=== PATIENT | female | born 1990 | race Caucasian/White ===

== ENCOUNTER 2017-04-03 14:19 | Emergency (ER) | payer BC ==
[2017-04-03 14:36] VITALS: BP 114/53
--- NOTE | 2017-04-03 15:27 | RAD ---
Indication: RIGHT fifth toe pain following jamming injury. Comparison: No relevant prior exams available on the [facility] PACS for comparison. Technique: 3 views RIGHT fifth toe. 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 Negative for fracture or articular malalignment. Mild nonfocal soft tissue swelling.
--- NOTE | 2017-04-03 16:56 | UC ---
Lower Extremity/Ankle HPI - HPI Summary HPI Summary: 26 yo NA female p/w right 5th toe pain after it she slipped and toe got stuck underneath a shelf and now hurts to bear weight. - History of Current Complaint Chief Complaint: UCLowerExtremity Stated Complaint: RIGHT PINKY TOE INJURY Time Seen by Provider: 04/03/17 15:20 Hx Obtained From: Patient Hx Last Menstrual Period: one week ago ?: No Pain Intensity: 1 Pain Scale Used: 0-10 Numeric Aggravating Factor(s): Standing - Allergies/Home Medications Allergies/Adverse Reactions: Allergies Allergy/AdvReac Type Severity Reaction Status Date / Time No Known Allergies Allergy Verified 04/03/17 14:36 Home Medications: Home Medications Albuterol HFA INHALER* [Ventolin HFA Inhaler*] 2 puff INH Q4HR PRN 04/03/17 [ History Confirmed 04/03/17] PMH/Surg Hx/FS Hx/Imm Hx - Surgical History Surgical History: None - Social History Alcohol Use: Occasionally Substance Use Type: None Smoking Status (MU): Never Smoked Tobacco Review of Systems Constitutional: Negative Skin: Negative Eyes: Negative ENT: Negative Respiratory: Negative Cardiovascular: Negative Gastrointestinal: Negative Genitourinary: Negative Motor: Negative Neurovascular: Negative Musculoskeletal: Other: - right 5th toe pain after injury Neurological: Negative Psychological: Negative All Other Systems Reviewed And Are Negative: Yes Physical Exam Triage Information Reviewed: Yes Appearance: Well-Appearing, No Pain Distress Vital Signs: Initial Vital Signs Temp 36.1 C 04/03/17 14:32 Pulse 80 04/03/17 14:32 Resp 18 04/03/17 14:32 BP 114/53 04/03/17 14:32 Pulse Ox 100 04/03/17 14:32 Eye Exam: Normal ENT Exam: Normal Dental Exam: Normal Neck exam: Normal Neck: Positive: 1 Respiratory Exam: Normal Cardiovascular Exam: Normal Abdominal Exam: Normal Musculoskeletal Exam: Normal Musculoskeletal: Positive: ROM Intact, Other: - mild right 5th toe tenderness swelling and ecchymosis, NVI Neurological Exam: Normal Psychological Exam: Normal Skin Exam: Normal Lower Extremity Course/Dx - Course Course Of Treatment: XR of right toe- neg for fx - Differential Dx/Diagnosis Provider Diagnoses: right toe contusion Discharge - Discharge Plan Condition: Stable Disposition: HOME Patient Education Materials: Foot Contusion (ED) Forms: *Work Release Referrals: Cecille Scott MD [Primary Care Provider] - Additional Instructions: as tolerated
== END 2017-04-03 16:01 | disposition home or self-care (01) ==
LOC: UCEAST 14:19
DX: S90.121A Contusion of right lesser toe(s) without damage to nail, initial encounter (principal); W01.0XXA Fall on same level from slipping, tripping and stumbling without subsequent striking against object, initial encounter; Y92.9 Unspecified place or not applicable
CPT/HCPCS: 99211; G0463